=== PATIENT | male | born 1995 | race Caucasian/White ===

== ENCOUNTER 2019-02-19 19:21 | Emergency (ER) | payer OTHER ==
[~2019-02-19] VITALS: Ht 170.2 cm; Wt 65.9 kg
[2019-02-19 19:26] VITALS: Ht 170.2 cm; Wt 65.9 kg
[2019-02-19] MEDS ORDERED: ULTRAM50 MG PO (20:40)
[2019-02-19 20:52] VITALS: BP 120/79
== END 2019-02-19 20:50 | disposition home or self-care (01) ==
LOC: EDSEX 19:21 → D.ER 19:21
DX: S93.602A Unspecified sprain of left foot, initial encounter (principal); V86.55XA Driver of 3- or 4- wheeled all-terrain vehicle (ATV) injured in nontraffic accident, initial encounter; Y93.89 Activity, other specified; Y92.89 Other specified places as the place of occurrence of the external cause; S93.402A Sprain of unspecified ligament of left ankle, initial encounter